=== PATIENT | male | born 1995 | race Caucasian/White ===

== ENCOUNTER 2019-09-14 12:50 | Outpatient (CLI) | payer OTHER, SELFPAY ==
--- NOTE | 2019-09-14 | XR_ITS ---
WS: [id number] FOOT RIGHT TECHNIQUE: 3 views of the right foot CLINICAL INFORMATION: FOOT PAIN RIGHT COMPARISON: None. FINDINGS: No evidence of acute fracture or dislocation. Normal tarsal metatarsal alignment. Normal calcaneus. N ormal visualized talar dome. No acute findings. XR/XR foot RT min 3V* [id number] IMPRESSION: Normal right foot.
== END 2019-09-14 12:51 | disposition home or self-care (01) ==
LOC: RADOUTREAD 09-17 08:57
PROVIDERS: Family Provider Family Medicine; PCP Family Medicine; Visit Provider Nurse Practitioner Family
DX: Z76.89 Persons encountering health services in other specified circumstances (principal)

== ENCOUNTER 2019-09-14 12:50 | Outpatient (CLI) | payer OTHER, SELFPAY | END 2019-09-14 12:51 | disposition home or self-care (01) | LOC: RADOUTREAD 09-17 07:43 | PROVIDERS: Family Provider Family Medicine; PCP Family Medicine; Visit Provider Nurse Practitioner Family | DX: Z76.89 Persons encountering health services in other specified circumstances (principal) ==

== ENCOUNTER 2021-02-03 09:48 | Outpatient (CLI) | payer OTHER, SELFPAY ==
--- NOTE | 2021-02-03 09:59 | US_ITS ---
WS: [id number] ULTRASOUND ABDOMEN LIMITED CLINICAL INFORMATION: RUQ ABD PAIN/EPIGASTRIC PAIN COMPARISON: CT and ultrasound FINDINGS: Liver Size: Enlarged Craniocaudal length: 17.4 cm. Echogenicity: Normal. Surface nodularity: None. Mass (size and location): Echogenic mass right hepatic lobe measures 1.6 x1.2 x 1.0 cm most consisten t with cavernous hemangioma. Hepatopedal flow in the main portal vein. Bile ducts Intrahepatic ducts: Normal. Common bile duct diameter: 0.3 cm. Gallbladder Normal. Gallstones: None. Gallbladder sludge: None. Gallbladder wall thickening: None. Pericholecystic fluid: None. Sonographic Downey sign: Absent. Pancreas Normal as visualized. Right kidney: Normal. Hydronephrosis: None. Size: 11.4 cm x 4.7 cm x 5.3 cm. Abdominal aorta and IVC Visualized portions are normal. Ascites: None. US/US gall bladder [id number] IMPRESSION: 1. Normal gallbladder. 2. Mild hepatomegaly. 3. Echogenic mass right hepatic lobe measures 1.6 1.2 x 1.0 cm most consistent with cavernous hemangioma. 4. No hydronephrosis in right kidney. 5. Normal common bile duct.
== END 2021-02-03 09:49 | disposition home or self-care (01) ==
LOC: RAD 09:53
PROVIDERS: PCP Family Medicine; Visit Provider Family Medicine
DX: R10.11 Right upper quadrant pain (principal); R10.13 Epigastric pain; R16.0 Hepatomegaly, not elsewhere classified
CPT/HCPCS: 76705

== ENCOUNTER 2021-02-25 09:22 | Outpatient (CLI) | payer OTHER, SELFPAY ==
--- NOTE | 2021-02-25 09:28 | NM_ITS ---
WS: [id number] NUCLEAR MEDICINE HIDA SCAN WITH GALLBLADDER EJECTION FRACTION HISTORY: RUQ ABDOMINAL PAIN COMPARISON: 01/29/2016 and gallbladder ultrasound 02/03/2021 TECHNIQUE: The patient was intravenously injected with 5.3 mCi of TC99m Mebrofenin. Immediate imaging over the right upper quadrant was followed by 5 minute image and additional images for a total of 60 minutes. Normal uptake of radiotracer throughout the liver. Activity identified in the gallbladder at 10 minutes and well distended by 60 minutes. Activity in the proximal small bowel was seen by 20 minutes. Good washout of the radiotracer from the liver by 60 minutes. The patient then drank 8 ounces of Ensure Plus. Ejection fraction at 60 minutes was 85%. Normal GB ej ection fraction is 35-75%. Post fatty meal symptoms: None. NM/NM hepatobiliary w phar* [id number] IMPRESSION: 1. Normal HIDA scan. 2. Normal gallbladder ejection fraction.
== END 2021-02-25 09:23 | disposition home or self-care (01) ==
LOC: RAD 09:25
PROVIDERS: PCP Family Medicine; Visit Provider Family Medicine
DX: R10.11 Right upper quadrant pain (principal)
CPT/HCPCS: 78227; A9537